=== PATIENT | female | born 1985 | race Two or more races ===

== ENCOUNTER 2020-01-04 17:59 | Emergency (ER) | payer MEDICAID ==
[~2020-01-04] VITALS: Ht 188 cm; Wt 100.0 kg
[2020-01-04] MEDS ORDERED: OXYcodone/APAP 5/325MG TABLET PO ONE (19:00)
--- NOTE | 2020-01-04 19:08 | NUR ---
BEDSIDE REPORT FROM KAT RN, PT CARE TRANSFERRED AT THIS TIME. PT RESTING IN GURNEY, NAD, RESP WNL, P/W/D, FAMILY AT BS, CALL LIGHT ON LAP, DENIES ADDITIONAL NEEDS AT THIS TIME, WCTM, WAITING FOR ADDITIONAL TESTING RESULTS.
[2020-01-04 19:16] LABS: BASOPHILS # (AUTO) 0.09 x10^3/uL (0-0.1); BASOPHILS % (AUTO) 1 % (0-1); EOSINOPHILS # (AUTO) 0.31 x10^3/uL (0-0.4); EOSINOPHILS % (AUTO) 2 % (1-7); LYMPHOCYTES # (AUTO) 3.25 x10^3/uL (1-3.4); LYMPHOCYTES % (AUTO) 21 % (22-44); MD NO; MEAN CORPUSCULAR HEMOGLOBIN 29.1 pg (27.0-34.8); MEAN CORPUSCULAR HGB CONC 33.6 g/dL (32.4-35.8); MEAN CORPUSCULAR VOLUME 86.7 fL (80-100); MEAN PLATELET VOLUME 9.1 fL (7.4-10.4); MONOCYTES # (AUTO) 0.84 x10^3/uL (0.2-0.8); MONOCYTES % (AUTO) 6 % (2-9); NEUTROPHILS # (AUTO) 10.98 x10^3/uL (1.8-6.8); NEUTROPHILS % (AUTO) 71 % (42-75); PLATELET COUNT 241 x10^3/uL (130-400); RED BLOOD COUNT 5.31 x10^6/uL (3.82-5.3); RED CELL DISTRIBUTION WIDTH 13.6 % (9.6-15.2)
[2020-01-04 19:18] LABS: HCT (SEDRATE) 46.2 % (34.6-47.8)
[2020-01-04] MEDS ORDERED: OXYcodone/APAP 5/325MG TABLET ONE (19:19)
[2020-01-04 19:23] LABS: ALBUMIN 3.7 g/dL (3.4-5.0); ANION GAP 7 mmol/L (5-15); CALCIUM 9.2 mg/dL (8.5-10.1); CHLORIDE 109 mmol/L (98-107); CREATININE 0.78 mg/dL (0.55-1.02)
[2020-01-04 20:33] VITALS: BP 112/48
--- NOTE | 2020-01-04 20:34 | NUR ---
PT RESTING IN GURNEY, EYES CLOSED, AT BS, CALL LIGHT NEXT TO PT ON MANUELA, NAD, RESP WNL, VSS, WCTM. WAITING ON RECHECK
--- NOTE | 2020-01-04 21:07 | NUR ---
Patient given discharge instructions and they have confirmed that they understand the instructions. Patient ambulatory with steady gait. Denies additional questions at this time, NAD, RESP WNL, VSS, MAEx3, non weight bearing due to pain on left foot. Pt left with all belongings.
== END 2020-01-04 21:11 | disposition home or self-care (01) ==
LOC: ED 21:06
DX: L03.116 Cellulitis of left lower limb (principal); F17.200 Nicotine dependence, unspecified, uncomplicated
CPT/HCPCS: 36415; 80048; 82040; 84550; 85025; 85651; 99284